=== PATIENT | female | born 1995 | race Caucasian/White ===

== ENCOUNTER 2016-10-20 16:57 | Emergency (ER) | payer MEDICAID ==
[~2016-10-20 16:57] MED LIST: PREN1PAK2 PO
--- NOTE | 2016-10-20 18:13 | PD ---
HPI Chief Complaint Sore Throat Date Seen: Oct 20, 2016 Travel History International Travel<30 Days: No Contact w/Intl Traveler<30Days: No Known Affected Area: No History of Present Illness HPI Mrs. Subramanian is 20 y/o a who presents at 31/0 weeks with 2-3 days of general malaise, sore throat and headaches. She reports that her Dad had similar symptoms and had the "flu". She had an episode of SOB and some mild cough that was non-productive. She denies pain or swelling in her extremities. She denies vaginal bleeding or LOF. She does report that the baby has been less active today. She has not been staying hydrated. Para: 3 : 1 History Past Medical History Medical History: Denies Significant Hx Obstetric History Obstetric History Previous vaginal delivery at term. Past Surgical History Surgical History: No Previous Surgery Family History Family History: Negative Social History Alcohol Use: No Tobacco Use: No Substance Abuse: No Allergies-Medications (Allergen,Severity, Reaction): Coded Allergies: Latex (Unverified Allergy, Severe, 10/13/16) Home Meds Reported Medications W/O Vit A W/ Fe Carbo Pack (Citranatal Dha Pack)27-1 & 250 Mg Pack1 Ea PO DAILY #6 BLISTER Ref 0 30 day supply. 08/20/16 Physical Exam Narrative GENERAL: Well-nourished, well-developed patient. SKIN: Warm and dry. HEAD: Normocephalic and atraumatic. EYES: No scleral icterus. No injection or drainage. ENT: Erythematous pharynx, no exudates. NECK: Supple, trachea midline. No JVD. CARDIOVASCULAR: Regular rate and rhythm without murmurs, gallops, or rubs. RESPIRATORY: Breath sounds equal bilaterally. No accessory muscle use. BREASTS: Bilateral exam showed no masses , no retractions, no nipple discharge. ABDOMEN/GI: Abdomen soft, non-tender, bowel sounds present, no rebound, no guarding Gravid to 31 weeks. GENITOURINARY: External Genitalia: intact and normal in appearance Membranes: intact Uterine Contractions: none on monitor FHT's: Category: 2 Baseline: 170-145 Reactive: yes Variability: mod Decels: none EXTREMITIES: No cyanosis or edema. BACK: Nontender without obvious deformity. No CVA tenderness. NEUROLOGICAL: Awake and alert. Motor and sensory grossly within normal limits. Data Data Vital Signs Reviewed: Yes Orders Influenzae A/B Antigen (10/20/16 18:09) MDM Plan Ms. Subramanian is a 20 y/o presenting at 31 weeks gestation with general malaise, headaches and a sore throat for 2-3 days. #1- IUP at 31 weeks strip reactive baseline 165-145, ++ acels. Not kimmie on toco Start 1 L bolus of LR Ampicillin 500 mg PO q 8 hours for possible bacterial pharyngitis Flu A & B were negative #2- Sore throat / Malaise Likely viral pharyngitis, will get rapid strep and mono screen. Flu Ab A&B were negative. Supportive measures - Tylenol Cold and Flu UA +/- culture #3- Headaches BP at goal 118 systolic - no protein on urine dip. tobi Barron. chloew Levy Corbin MD R2 Oct 20, 2016 18:13
[2016-10-20] MEDS ORDERED: LACTATED RINGER'S 1000 ML INJ 1,000 ML IV SCH (18:19)
--- NOTE | 2016-10-20 19:52 | PD ---
History of Present Illness History of Present Illness This patient is a 20-year-old white female at 31 weeks presents complaining of upper respiratory symptoms, ascribes headache and sore throat some sinus congestion and cough, denies obstetric problems no abdominal pain bleeding or rupture the membranes. Baby is active and heart rate tracing is reactive. She states that her had the flu recently our flu swab today done with nasal washings was negative for a and B flu, . Exam is benign lungs are clear patient probably has a virally URI also bacterial will see the patient ampicillin 500 3 times a day for a week, she is use Claritin over-the- counter for a sinus congestion to help with that, Tylenol use liberally is she' s been doing, and increase her fluid intake stay hydrated return if she starts getting fever or other symptoms with worsening Jose Francisco Barron II, MD Oct 20, 2016 19:52
[2016-10-20] MEDS ORDERED: AMOXICILLIN (TRIHYDRATE) 500 MG CAP PO SCH (22:00)
--- NOTE | 2016-10-21 06:25 | PD ---
HPI Travel History International Travel<30 Days: No Contact w/Intl Traveler<30Days: No Known Affected Area: No Allergies-Medications (Allergen,Severity, Reaction): Coded Allergies: Latex (Unverified Allergy, Severe, 10/13/16) Home Meds Reported Medications W/O Vit A W/ Fe Carbo Pack (Citranatal Dha Pack)27-1 & 250 Mg Pack1 Ea PO DAILY #6 BLISTER Ref 0 30 day supply. 08/20/16 Physical Exam Narrative GENERAL: Well-nourished, well-developed patient. SKIN: Warm and dry. HEAD: Normocephalic and atraumatic. EYES: No scleral icterus. No injection or drainage. ENT: No nasal drainage noted. Mucous membranes pink. Airway patent. NECK: Supple, trachea midline. No JVD. CARDIOVASCULAR: Regular rate and rhythm without murmurs, gallops, or rubs. RESPIRATORY: Breath sounds equal bilaterally. No accessory muscle use. BREASTS: Bilateral exam showed no masses , no retractions, no nipple discharge. ABDOMEN/GI: Abdomen soft, non-tender, bowel sounds present, no rebound, no guarding Gravid to [-] weeks size Fundal Height: [-] GENITOURINARY: External Genitalia: intact and normal in appearance BUS glands: [-] Cervix: [-] Dilatation: [-] Effacement: [-] Station: [-] Presentation: [-] Membranes: [intact or ruptured] Uterine Contractions: [-] FHT's: Category: [-] Baseline: [-] Reactive: [-] Variability: [-] Decels: [-] EXTREMITIES: No cyanosis or edema. BACK: Nontender without obvious deformity. No CVA tenderness. NEUROLOGICAL: Awake and alert. Motor and sensory grossly within normal limits. Five out of 5 muscle strength in all muscle groups. Normal speech. Data Data Orders Influenzae A/B Antigen (10/20/16 18:09) Vital Signs (Adult) .ON ADMISSION (10/20/16 18:19) ^ Labor Status (10/20/16 18:19) Lactated Ringer's 1000 Ml Inj (Lr 1000 M (10/20/16 18:19) Group A Rapid Strep Screen (10/20/16 18:19) Amoxicillin (Trimox) (10/20/16 22:00) Labs Date/Time Procedure Status Source Growth 10/20/16 17:15 Influenza Types A,B Antigen ([place]) - Final Complete Nasal Washing NEGATIVE FOR FLU A AND B ANTIGEN.... MDM Diagnosis Diagnosis: Primary Impression: Upper respiratory tract infection Additional Impression: Abdominal cramping affecting Disposition: 01 DISCHARGE HOME Condition: Stable Patient Instructions: General Instructions Additional Instructions: drink plenty of fluid, may take claritin, robitussin, tylenol for symptonms, saline nasal spray for nasal congestion. prescription for ampicillin, 500 mg 1 three times daily Departure Forms: Tests/Procedures Jose Francisco Barron II, MD Oct 21, 2016 06:24
== END 2016-10-20 20:30 | disposition home or self-care (01) ==
LOC: HOBED 16:57
DX: O26.893 Other specified pregnancy related conditions, third trimester (principal); J06.9 Acute upper respiratory infection, unspecified; R10.9 Unspecified abdominal pain; R05 Cough; J02.9 Acute pharyngitis, unspecified; R51 Headache
CPT/HCPCS: 87804; 99284

== ENCOUNTER 2016-12-11 07:45 | Inpatient (IN) | payer MEDICAID ==
[2016-12-11] VITALS (126 sets, daily range): BP systolic 81–126; BP diastolic 46–99; PULSE 61–254; RESP 3–18; TEMP 97.9–99.1
[2016-12-11] MEDS ORDERED: LACTATED RINGER'S 1000 ML INJ 1,000 ML IV PRN (08:28)
--- NOTE | 2016-12-11 08:29 | PD ---
HPI Chief Complaint ctx since 2am Date Seen: Dec 11, 2016 Time Seen: 08:55 Travel History International Travel<30 Days: No Contact w/Intl Traveler<30Days: No Known Affected Area: No History of Present Illness HPI Patient is a 21 year old at 38 and 3/7 weeks gestation by by early second trimester ultrasound is not consistent with LMP. EDC 12/22/16. She presents to the ED with contractions since 2 AM. [facility] cares with [facility]. She denies leakage of fluid, vaginal bleeding. She feels baby moving regularly. She denies ROSA/N/V/D/fever/sick contacts/SOB/calf pain/dizziness/seeing spots. GBS collected 11/24/16 was negative Para: 1 : 2 History Past Medical History Medical History: Denies Significant Hx Past Surgical History Surgical History: No Previous Surgery Family History Narrative Family History Mother with renal cell carcinoma age 61 Social History Alcohol Use: No Tobacco Use: No (quit smoking prior to ) Substance Abuse: No Allergies-Medications (Allergen,Severity, Reaction): Coded Allergies: Latex (Unverified Allergy, Severe, 12/11/16) Home Meds Reported Medications W/O Vit A W/ Fe Carbo Pack (Citranatal Dha Pack)27-1 & 250 Mg Pack1 Ea PO DAILY #6 BLISTER Ref 0 30 day supply. 08/20/16 Review of Systems Except as stated in HPI: all other systems reviewed are Neg Physical Exam Narrative GENERAL: Well-nourished, well-developed female patient who looks uncomfortable during contractions SKIN: Warm and dry. No rashes. HEAD: Normocephalic and atraumatic. EYES: No scleral icterus. No injection or drainage. ENT: No nasal drainage noted. Mucous membranes pink. Airway patent. NECK: Supple, trachea midline. No JVD. CARDIOVASCULAR: Regular rate and rhythm without murmurs, gallops, or rubs. RESPIRATORY: Breath sounds equal bilaterally. No accessory muscle use. ABDOMEN/GI: Abdomen gravid, non-tender, bowel sounds present, no rebound, no guarding GENITOURINARY: External Genitalia: intact and normal in appearance Cervix: 5/50/-3, posterior, ballotable vertex presentation (head is floating above amniotic fluid) Membranes: Intact, ballotable head Uterine Contractions: Every 4-6 minutes FHT's: Category: 1 Baseline: 130 Reactive: Yes to 150 Variability: Moderate Decels: none EXTREMITIES: No cyanosis. 1+ lower extremity edema bilaterally BACK: Nontender without obvious deformity. No CVA tenderness. NEUROLOGICAL: Awake and alert. Motor and sensory grossly within normal limits. Five out of 5 muscle strength in all muscle groups. Normal speech. Data Data Vital Signs Reviewed: Yes (BP 107/77, heart rate 86, respirations 18, no temp documented) Orders Vital Signs (Adult) .ON ADMISSION (12/11/16 08:17) ^ Labor Status (12/11/16 08:17) Urinalysis - C+S If Indicated (12/11/16 08:17) ^ Non Stress Test (12/11/16 08:17) ^ Hydration (12/11/16 08:17) [facility] Medical Record Reviewed: Yes Plan 21-year-old at 38 and 3/7 wk today presents in labor. [facility] patient. Intrauterine : Category 1 tracing Vaginal delivery expected Membranes are intact, ballotable vertex presentation Epidural for pain CBC pending U/A pending IV fluids Monitor heart tones Routine care GBS negative SDW Dr. Barron, Dr. Kaur Diagnosis Diagnosis: Primary Impression: 38 weeks gestation of Candice Kerns MD R1 Dec 11, 2016 08:28
[2016-12-11] MEDS ORDERED: ONDANSETRON HCL 4 MG/2 ML VIAL IV PRN (08:30)
[2016-12-11] MEDS ORDERED: CITRIC ACID-SODIUM CITRATE LIQ 30 ML UDC PO SCH (08:30)
[2016-12-11] MEDS ORDERED: SODIUM CHLORID 0.9% 500 ML INJ 500 ML IV PRN (08:30)
[2016-12-11] MEDS ORDERED: LIDOCAINE HCL 1% 50 ML VIAL INFIL PRN (08:30)
[2016-12-11] MEDS ORDERED: OXYTOCIN 30 UNITS-500ML PREMIX 500 ML IV ONE (08:30)
[2016-12-11] MEDS ORDERED: MINERAL OIL 10 ML VIAL TOPICAL PRN (08:30)
[2016-12-11] MEDS ORDERED: LIDOCAINE HCL 1% 50 ML VIAL I-DERMAL PRN (08:30)
[2016-12-11] MEDS ORDERED: SODIUM CHLOR 0.9% 1000 ML INJ 1,000 ML IV PRN (08:48)
--- NOTE | 2016-12-11 08:59 | HHI.HP ---
HPI Chief Complaint Contraction pain Date Seen: Dec 11, 2016 Travel History International Travel<30 Days: No Contact w/Intl Traveler<30Days: No Known Affected Area: No History of Present Illness HPI This patient is a 21-year-old white female A1 at 38 weeks [facility] by [facility] who presents complaining of contractions denies bleeding or ruptured membranes. Her heart rate tracing is reactive and she is kimmie regularly. Para: 1 : 3 History Obstetric History Obstetric History One vaginal delivery 1 early loss Social History Alcohol Use: No Tobacco Use: No Substance Abuse: No Allergies-Medications (Allergen,Severity, Reaction): Coded Allergies: Latex (Unverified Allergy, Severe, 12/11/16) Home Meds Reported Medications W/O Vit A W/ Fe Carbo Pack (Citranatal Dha Pack)27-1 & 250 Mg Pack1 Ea PO DAILY #6 BLISTER Ref 0 30 day supply. 08/20/16 Review of Systems General / Constitutional: No: Fever, Weight Gain, Chills, Other Eyes: No: Diploplia, Blurred Vision, Visual changes, Pain, Photophobia HENT: No: Headaches, Vertigo, Lightheadedness Cardiovascular: No: Irregular Rhythm, Chest Pain or Discomfort, Palpitations, Tachycardia, Syncope, Varicosities, Edema, Cyanosis Respiratory: No: Cough, Short of Breath, Other Gastrointestinal: Abdominal Pain, No: Nausea, Vomiting, Diarrhea Genitourinary: No: Decreased Urinary Output, Oliguria Musculoskeletal: No: Limited ROM, Weakness, Cramping, Edema, Pain Skin: No Rash, No Itching, No Dryness, No Lumps, No Change in Pigmentation, No Change in Nails, No Alopecia, No Lesions Neurologic: No: Weakness, Dizziness, Syncope, Focal Abnormalities, Coordination Problem, Headache, Slurred Speech, Seizures Psychiatric: No: Depression, Suicidal Ideations, Homicidal Ideation Endocrine: No: Heat Intolerance, Cold Intolerance, Polydipsia, Polyuria, Other Physical Exam Narrative GENERAL: Well-nourished, well-developed patient. SKIN: Warm and dry. HEAD: Normocephalic and atraumatic. EYES: No scleral icterus. No injection or drainage. ENT: No nasal drainage noted. Mucous membranes pink. Airway patent. NECK: Supple, trachea midline. No JVD. CARDIOVASCULAR: Regular rate and rhythm without murmurs, gallops, or rubs. RESPIRATORY: Breath sounds equal bilaterally. No accessory muscle use. BREASTS: Bilateral exam showed no masses , no retractions, no nipple discharge. ABDOMEN/GI: Abdomen soft, non-tender, bowel sounds present, no rebound, no guarding Gravid to [-38] weeks size Fundal Height: [-38] GENITOURINARY: External Genitalia: intact and normal in appearance BUS glands: [-] Cervix: [-] Dilatation: [-5] Effacement: [50-] Station: [-3] unengaged presenting part Presentation: [Cephalic-] ballotable Membranes: [intact ] Uterine Contractions: [reg-] FHT's: Category: [-1] Baseline: [-133] Reactive: [yes-] Variability: [mod-] Decels: [-none] EXTREMITIES: No cyanosis or edema. BACK: Nontender without obvious deformity. No CVA tenderness. NEUROLOGICAL: Awake and alert. Motor and sensory grossly within normal limits. Five out of 5 muscle strength in all muscle groups. Normal speech. Data Data Orders Vital Signs (Adult) .ON ADMISSION (12/11/16:) ^ Labor Status (12/11/16:) Urinalysis - C+S If Indicated (12/11/16:) ^ Non Stress Test (12/11/16:) ^ Hydration (12/11/16:) Admit To Inpatient (12/11/16 ) Code Status (12/11/16 08:28) Vital Signs (Adult) .Per protocol (12/11/16 08:28) Activity Oob Ad Anais (12/11/16 08:28) ^ Heart (12/11/16 08:28) ^ Amnioinfusion (12/11/16 08:28) Urinary Catheter Management .ONCE (12/11/16 08:28) Diet Npo (12/11/16 Breakfast) Lactated Ringer's 1000 Ml Inj (Lr 1000 M (12/11/16 08:28) Lactated Ringer's 1000 Ml Inj (Lr 1000 M (12/11/16 08:28) Sodium Chlorid 0.9% 500 Ml Inj (Ns 500 M (12/11/16 08:30) Sodium Chlor 0.9% 1000 Ml Inj (Ns 1000 M (12/11/16 08:48) Lidocaine 1% Inj (50 Ml) (Xylocaine 1% I (12/11/16 08:30) Citric Acid-Sodium Citrate Liq (Bicitra (12/11/16 08:30) Ondansetron Inj (Zofran Inj) (12/11/16 08:30) Fentanyl Inj (Fentanyl Inj) (12/11/16 08:30) Fentanyl Inj (Fentanyl Inj) (12/11/16 08:30) Complete Blood Count With Diff (12/11/16 08:28) Hold Clot (12/11/16 08:28) Abo/Rh Blood Type (12/11/16 08:28) Resp Oxygen Non Rebreathe Mask (12/11/16 ) ^ Epidural / Intrathecal Infus (12/11/16 08:28) Oxytocin 30 Units-500ml Premix (Pitocin (12/11/16 08:30) Lidocaine 1% Inj (50 Ml) (Xylocaine 1% I (12/11/16 08:30) Light Mineral Oil (Muri-Lube Oil) (12/11/16 08:30) Inpatient Certification (12/11/16 ) Ob (2e) Additional Admit Info (12/11/16 08:44) Assessment/Plan Assessment and Plan This patient is a 21-year-old white female at 38 weeks presents in labor. Her cervix is 5 cm 50% -3 with an unengaged presenting cephalic there is no bleeding or rupture the membranes and I back there is an intact bag of water and the head is floating in the upper pelvis Plan to admit the patient and would wait until the head is presenting more pressure on the cervix before ruptured her membranes. And if she ruptures her membranes spontaneously she does be examined to make sure is no cord prolapse Jose Francisco Barron II, MD Dec 11, 2016 08:59
[2016-12-11 09:14] LABS: AUTOMATED NEUTROPHIL # 7.3 TH/MM3 (1.8-7.7); BASOPHIL % 0.3 % (0.0-2.0); EOSINOPHIL % 0.2 % (0.0-4.0); HEMATOCRIT 39.1 % (35.0-46.0); HEMO FLAGS DIFF FINAL; LYMPH % 23.6 % (9.0-44.0); LYMPHOCYTE # 2.5 TH/MM3 (1.0-4.8); MEAN CELL VOLUME 86.5 FL (80.0-100.0); MEAN CORPUSCULAR HEMOGLOBIN 29.5 PG (27.0-34.0); MEAN CORPUSCULAR HGB CONC 34.1 % (32.0-36.0); NEUT % 68.9 % (16.0-70.0); PLATELET COUNT 226 TH/MM3 (150-450); RED BLOOD COUNT 4.52 MIL/MM3 (4.00-5.30); RED CELL DISTRIBUTION WIDTH 13.4 % (11.6-17.2); WHITE BLOOD COUNT 10.6 TH/MM3 (4.0-11.0)
[2016-12-11 09:15] LABS: BACTERIA, URINE RARE /hpf; BLOOD, URINE NEG (NEG); COMMENT (UR) CULT NOT INDICATED; CULTURE IF INDICATED CULT NOT INDICATED; GLUCOSE,URINE NEG (NEG); KETONE, URINE NEG (NEG); NITRITE,URINE NEG (NEG); PH, URINE 6.5 (5.0-8.5); SQUAMOUS EPITHELIAL CELL URINE 1 /hpf (0-5); URINE COLOR YELLOW (YELLW/STRAW)
[2016-12-11] MEDS ORDERED: fentaNYL 2MCG-BUPIV 0.125% INJ 100 ML ONE (09:36)
[2016-12-11] MEDS ORDERED: ePHEDrine/NS 25 MG/5 ML SYR ONE (09:41)
[2016-12-11] MEDS ORDERED: LIDOCAINE HCL 1% PF 5 ML AMPULE ONE (10:05)
--- NOTE | 2016-12-11 11:29 | PD.LABORPN ---
Subjective Subjective Epidural in place now, prolonged placement (took 1 hr) noted with possible late decels during that time. Patient strip now showing sporadic CTX, small accels with moderate variablility, no decls. Cat 1. AFVSS. (Candice Kerns MD R1) Objective Vital Signs Vital Signs Date Time Temp Pulse Resp B/P Pulse Ox O2 Delivery O2 Flow Rate FiO2 12/11/16 11:05 61 12/11/16 11:04 62 93/57 12/11/16 11:00 82 12/11/16 10:59 79 100/62 12/11/16 10:55 86 12/11/16 10:50 73 12/11/16 10:48 89 98/48 12/11/16 10:45 16 12/11/16 10:45 111 12/11/16 10:40 91 12/11/16 10:37 74 122/70 12/11/16 10:35 86 12/11/16 10:30 91 12/11/16 10:20 76 12/11/16 10:15 80 12/11/16 10:10 80 12/11/16 10:05 70 12/11/16 10:00 77 12/11/16 09:55 72 12/11/16 09:50 69 12/11/16 09:45 16 12/11/16 09:33 78 123/71 12/11/16 09:30 18 12/11/16 09:18 69 119/80 12/11/16 08:15 98.3 Objective Pelvic Exam: Cervix: [-] Dilatation: [-7 Effacement: [50-] Station: [-2] unengaged presenting part Presentation: [Cephalic-] ballotable Membranes: [intact ] Uterine Contractions: [reg-] FHT's: Category: [-1] Baseline: [-140] Reactive: yes to 155 Variability: [mod-] Decels: possible late x 2 around epidural placement, none x 20 min (Candice Kerns MD R1) Assessment/Plan Assessment and Plan 21-year-old at 38 and 3/7 wk today in active phase of labor. [facility] patient. CTX less notable after epidural. Cervix 7/60/-2 so some progress over 3-4 hr Intrauterine : Category 1 tracing Vaginal delivery expected Membranes are intact, ballotable vertex presentation, no AROM at this time, prompt vaginal exam indicated to assess for cord prolapse once ruptured. No IUPC yet given intact. Epidural in place approx 11am Will start Pitocin if no cervical change in 1-2hr CBC unremarkable H/H 13.3/39.1, plt 226 UA showing 6 wbcs, no cx indicated, pt asymptomatic IV fluids per protocol Monitor heart tones Routine care GBS negative (Candice Kerns MD R1) Attestation Agree with above (Katherine Sanchez MD) Candice Kerns MD R1 Dec 11, 2016 11:29 Katherine Sanchez MD Dec 11, 2016 16:38
[2016-12-11] MEDS ORDERED: OXYTOCIN 30 UNITS-500ML PREMIX 500 ML IV SCH (13:15)
[2016-12-11] MEDS ORDERED: NO SYSTEM NARCOTICS XX PRN (13:45)
[2016-12-11] MEDS ORDERED: fentaNYL 2MCG-BUPIV 0.125% 100 ML EPIDURAL SCH (13:45)
[2016-12-11] MEDS ORDERED: ePHEDrine/NS 25 MG/5 ML SYR IV PRN (13:45)
[2016-12-11] MEDS ORDERED: DO NOT ADMINISTER ANTICOAGULANTS XX PRN (13:45)
--- NOTE | 2016-12-11 14:57 | PD.LABORPN ---
Subjective Subjective Epidural in place, patient comfortable in bed. AROM at 2:50 PM. Head engaged with cervix. Oxytocin at 8 milliunits /min. Minimal contractions. Objective Vital Signs Vital Signs Date Time Temp Pulse Resp B/P Pulse Ox O2 Delivery O2 Flow Rate FiO2 12/11/16 14:10 72 12/11/16 14:05 72 12/11/16 14:00 75 107/57 12/11/16 14:00 78 12/11/16 13:48 98.1 12/11/16 13:40 74 12/11/16 13:35 83 12/11/16 13:30 88 103/79 12/11/16 13:30 78 12/11/16 13:10 76 12/11/16 13:05 72 12/11/16 13:00 75 102/54 12/11/16 13:00 67 12/11/16 12:55 72 12/11/16 12:50 71 12/11/16 12:46 63 109/57 12/11/16 12:45 71 12/11/16 12:15 16 12/11/16 12:10 66 12/11/16 12:05 71 12/11/16 12:00 62 12/11/16 12:00 62 109/65 12/11/16 11:55 65 12/11/16 11:50 71 12/11/16 11:45 63 112/49 12/11/16 11:45 16 12/11/16 11:45 86 12/11/16 11:40 68 12/11/16 11:35 71 12/11/16 11:31 66 110/58 12/11/16 11:30 74 12/11/16 11:25 75 12/11/16 11:20 78 12/11/16 11:15 16 12/11/16 11:15 67 12/11/16 11:15 70 118/99 12/11/16 11:13 83 111/94 12/11/16 11:10 63 12/11/16 11:05 61 12/11/16 11:04 62 93/57 12/11/16 11:00 82 12/11/16 10:59 79 100/62 12/11/16 10:55 86 12/11/16 10:50 73 12/11/16 10:48 89 98/48 12/11/16 10:45 16 12/11/16 10:45 111 12/11/16 10:40 91 12/11/16 10:37 74 122/70 12/11/16 10:35 86 12/11/16 10:30 91 12/11/16 10:20 76 12/11/16 10:15 80 12/11/16 10:10 80 12/11/16 10:05 70 12/11/16 10:00 77 12/11/16 09:55 72 12/11/16 09:50 69 12/11/16 09:45 16 12/11/16 09:33 78 123/71 12/11/16 09:30 18 12/11/16 09:18 69 119/80 12/11/16 08:15 98.3 Objective Pelvic Exam: Dilatation: 6 Effacement: 100 Station: -1 Presentation:vertex Membranes: AROM Uterine Contractions: rare FHT's: Category: 1 Baseline: 140's Reactive: yes Variability: moderate Decels: none Assessment/Plan Assessment and Plan 21-year-old at 38 and 3/7 wk today in active phase of labor. [facility] patient. CTX sporadic currently. Cervix 6/100/-1. AROM performed at 2:50 PM. Intrauterine : Category 1 tracing Vaginal delivery expected AROM performed at 2:[address] approx 11am Pitocin at 8 milliunits/min CBC unremarkable H/H 13.3/39.1, plt 226 UA showing 6 wbcs, no cx indicated, pt asymptomatic IV fluids per protocol Monitor heart tones Routine care Seen and discussed with Dr. Sanchez and Polo Stevens MD R2 Dec 11, 2016 14:57
[2016-12-11] MEDS ORDERED: MEASLES, MUMPS, RUBELLA VACCINE 0.5 ML VIAL SQ ONE (16:00)
[2016-12-11] MEDS ORDERED: DIPHTH/TETANUS/ACEL PERTUSSIS (BOOSTER) 0.5 ML VIAL/PFS IM ONE (16:00)
--- NOTE | 2016-12-11 16:26 | PD.LABORPN ---
Subjective Subjective Patient states she is more uncomfortable with contractions, bolus dose of meds in epidural did not help. States legs are numb, left > right. She states fluid has continued to leak slowly since AROM at 1449 today. Objective Vital Signs Vital Signs Date Time Temp Pulse Resp B/P Pulse Ox O2 Delivery O2 Flow Rate FiO2 12/11/16 16:00 81 12/11/16 16:00 74 101/55 12/11/16 15:59 98.3 12/11/16 15:30 76 96/65 12/11/16 15:30 73 12/11/16 15:05 78 12/11/16 15:01 76 97/55 12/11/16 15:00 76 12/11/16 14:40 74 12/11/16 14:35 75 12/11/16 14:31 75 111/61 12/11/16 14:30 77 12/11/16 14:10 72 12/11/16 14:05 72 12/11/16 14:00 75 107/57 12/11/16 14:00 78 12/11/16 13:48 98.1 12/11/16 13:40 74 12/11/16 13:35 83 12/11/16 13:30 88 103/79 12/11/16 13:30 78 12/11/16 13:10 76 12/11/16 13:05 72 12/11/16 13:00 75 102/54 12/11/16 13:00 67 12/11/16 12:55 72 12/11/16 12:50 71 12/11/16 12:46 63 109/57 12/11/16 12:45 71 12/11/16 12:15 16 12/11/16 12:10 66 12/11/16 12:05 71 12/11/16 12:00 62 12/11/16 12:00 62 109/65 12/11/16 11:55 65 12/11/16 11:50 71 12/11/16 11:45 63 112/49 12/11/16 11:45 16 12/11/16 11:45 86 12/11/16 11:40 68 12/11/16 11:35 71 12/11/16 11:31 66 110/58 12/11/16 11:30 74 12/11/16 11:25 75 12/11/16 11:20 78 12/11/16 11:15 16 12/11/16 11:15 67 12/11/16 11:15 70 118/99 12/11/16 11:13 83 111/94 12/11/16 11:10 63 12/11/16 11:05 61 12/11/16 11:04 62 93/57 12/11/16 11:00 82 12/11/16 10:59 79 100/62 12/11/16 10:55 86 12/11/16 10:50 73 12/11/16 10:48 89 98/48 12/11/16 10:45 16 12/11/16 10:45 111 12/11/16 10:40 91 12/11/16 10:37 74 122/70 12/11/16 10:35 86 12/11/16 10:30 91 12/11/16 10:20 76 12/11/16 10:15 80 12/11/16 10:10 80 12/11/16 10:05 70 12/11/16 10:00 77 12/11/16 09:55 72 12/11/16 09:50 69 12/11/16 09:45 16 12/11/16 09:33 78 123/71 12/11/16 09:30 18 12/11/16 09:18 69 119/80 Objective Pelvic Exam: Cervix: Dilatation:8 Effacement: 90 Station: 0 Presentation: cephalic Membranes: AROM today @ 1449 Uterine Contractions: every 2 - 4 min on Pit 10, discontinued due to late FHT's: Category: 2 Baseline: 140 Reactive: yes to 155 Variability: mod Decels: late decels > 50% CTX Assessment/Plan Assessment and Plan 21-year-old at 38 and 3/7 wk today in active phase of labor. [facility] patient. CTX every 2-4 min on Pit with late decels. Stopped Pit, pt repositioned, monitor FHTs with scalp electrode, ctx with IUPC. Will initiate amnioinfusion if no resolution of decels Intrauterine : Category 2 tracing, interventions in play now Vaginal delivery expected Replacing epidural now given increased pain Initial epidural in place approx 11am Pitocin was at 10, now stopped, will assess CTX without, titrate up once tolerated CBC unremarkable H/H 13.3/39.1, plt 226 UA showing 6 wbcs, no cx indicated, pt asymptomatic IV fluids per protocol Monitor heart tones Routine care Candice Kerns MD R1 Dec 11, 2016 16:25 Candice Kerns MD R1 Dec 11, 2016 16:25
--- NOTE | 2016-12-11 20:57 | PD.OB.DELI ---
Delivery Date: Dec 11, 2016 Anesthesia: Epidural Episiotomy: None Vaginal Delivery: Normal Presentation: Occiput anterior Nuchal Cord: x1 Delayed cord clamping (45 sec): Yes : Male One Minute : 8 Five Minute : 9 Weight: 3180g Care: Suctioned, Spontaneous crying, Responded to stimulation Placenta: Spontaneous delivery, Intact, 3 vessel cord Laceration: No lacerations Additional Information Baby boy delivered via spontaneous vaginal delivery, placenta delivered spontaneously. No lacerations. Apgars 8,9 (Ross Rios MD R1) Attestation Agree with delivery note. Resident was supervised closely during delivery. Nuchal cord x 1 reduced, no perineal lacerations (Katherine Sanchez MD) Ross Rios MD R1 Dec 11, 2016 20:56 Katherine Sanchez MD Dec 11, 2016 22:39
[2016-12-11] MEDS ORDERED: ALUMINUM/MAGNESIUM/SIMETH 30 ML CUP PO PRN (21:00)
[2016-12-11] MEDS ORDERED: WITCH HAZEL 50%/GLYCERIN 12.5% 40 PAD JAR TOPICAL PRN (21:00)
[2016-12-11] MEDS ORDERED: SODIUM CHLORIDE 0.9% FLUSH 5 ML FLUSH IV PRN (21:00)
[2016-12-11] MEDS ORDERED: ONDANSETRON ODT 4 MG TAB PO PRN (21:00)
[2016-12-11] MEDS ORDERED: BENZOCAINE 20% TOPICAL SPRAY 60 ML CAN TOPICAL PRN (21:00)
[2016-12-11] MEDS ORDERED: ZOLPIDEM TARTRATE 5 MG TAB PO PRN (21:00)
[2016-12-12] MEDS: LACTATED RINGER'S 1000 ML INJ 1,000 ML IV SCH (00:28)
[2016-12-12] MEDS: DOCUSATE SODIUM 50 MG/SENNA 8.6 MG TAB PO PRN ×2 (07:04→20:38)
[2016-12-12] MEDS: IBUPROFEN 600 MG TAB PO PRN ×3 (07:05→20:38)
--- NOTE | 2016-12-12 07:44 | HHI.OB ---
Subjective Post Day: 1 Remarks day #1. AFVSS overnight. Pain well-controlled. Decreased lochia. Denies dysuria. No breast tenderness. She is feeding the baby via breast. Appetite good. No nausea or vomiting. Endorses flatus. No bowel movement. Ambulating well. Denies calf pain, shortness of breath, or cough. Otherwise, she is doing well this morning and has no other complaints. (Ross Rios MD R1) Objective Vitals/I&O Vital Signs Date Time Temp Pulse Resp B/P Pulse Ox O2 Delivery O2 Flow Rate FiO2 12/11/16 22:30 109 112/52 12/11/16 22:18 18 12/11/16 22:15 99.1 110 117/67 12/11/16 22:15 18 12/11/16 22:00 18 12/11/16 22:00 113 118/65 12/11/16 21:45 110 118/54 12/11/16 21:43 18 12/11/16 21:30 110 119/58 12/11/16 21:20 18 12/11/16 21:20 3 12/11/16 21:15 118 118/49 12/11/16 21:01 98.3 18 12/11/16 21:00 116 111/55 12/11/16 20:56 117 114/47 12/11/16 20:05 94 12/11/16 20:01 106/65 12/11/16 19:35 111 12/11/16 19:30 97 18 12/11/16 19:30 97.9 12/11/16 19:30 106/81 12/11/16 19:25 110 12/11/16 19:00 87 116/76 12/11/16 19:00 89 12/11/16 18:55 105 12/11/16 18:50 116 12/11/16 18:45 99 12/11/16 18:40 92 12/11/16 18:35 114 12/11/16 18:35 119 102/66 12/11/16 18:31 110 81/46 12/11/16 18:30 102 12/11/16 18:25 113 12/11/16 18:24 216 107/51 12/11/16 18:20 104 12/11/16 18:15 114 12/11/16 18:10 100 12/11/16 18:05 107 12/11/16 18:02 165 108/62 12/11/16 18:00 99 12/11/16 17:55 101 12/11/16 17:55 98 112/90 12/11/16 17:51 125 98/64 12/11/16 17:51 98.1 18 12/11/16 17:50 101 12/11/16 17:45 83 118/53 12/11/16 17:45 93 12/11/16 17:40 84 111/48 12/11/16 17:40 88 12/11/16 17:35 87 12/11/16 17:35 100 108/53 12/11/16 17:31 83 105/56 12/11/16 17:30 105 12/11/16 17:26 115 96/58 12/11/16 17:25 113 12/11/16 17:21 254 100/81 12/11/16 17:20 108 12/11/16 17:16 121 122/58 12/11/16 17:15 100 12/11/16 17:10 92 125/95 12/11/16 17:10 86 12/11/16 17:07 18 12/11/16 17:05 86 120/69 12/11/16 17:05 77 12/11/16 17:00 123 12/11/16 17:00 86 103/81 12/11/16 16:57 76 126/70 12/11/16 16:55 105 111/53 12/11/16 16:55 119 12/11/16 16:53 75 108/71 12/11/16 16:50 105 12/11/16 16:50 97 84/46 12/11/16 16:45 95 12/11/16 16:40 87 12/11/16 16:35 86 12/11/16 16:30 100 12/11/16 16:30 97 101/80 12/11/16 16:15 89 12/11/16 16:10 86 12/11/16 16:05 78 12/11/16 16:00 81 12/11/16 16:00 74 101/55 12/11/16 15:59 98.3 12/11/16 15:30 76 96/65 12/11/16 15:30 73 3/10/17 15:05 78 12/11/16 15:01 76 97/55 12/11/16 15:00 76 12/11/16 14:40 74 12/11/16 14:35 75 12/11/16 14:31 75 111/61 12/11/16 14:30 77 12/11/16 14:10 72 12/11/16 14:05 72 12/11/16 14:00 75 107/57 12/11/16 14:00 78 12/11/16 13:48 98.1 12/11/16 13:40 74 12/11/16 13:35 83 12/11/16 13:30 88 103/79 12/11/16 13:30 78 12/11/16 13:10 76 12/11/16 13:05 72 12/11/16 13:00 75 102/54 12/11/16 13:00 67 12/11/16 12:55 72 12/11/16 12:50 71 12/11/16 12:46 63 109/57 12/11/16 12:45 71 12/11/16 12:15 16 12/11/16 12:10 66 12/11/16 12:05 71 12/11/16 12:00 62 12/11/16 12:00 62 109/65 12/11/16 11:55 65 12/11/16 11:50 71 12/11/16 11:45 63 112/49 12/11/16 11:45 16 12/11/16 11:45 86 12/11/16 11:40 68 12/11/16 11:35 71 12/11/16 11:31 66 110/58 12/11/16 11:30 74 12/11/16 11:25 75 12/11/16 11:20 78 12/11/16 11:15 16 12/11/16 11:15 67 12/11/16 11:15 70 118/99 12/11/16 11:13 83 111/94 12/11/16 11:10 63 12/11/16 11:05 61 12/11/16 11:04 62 93/57 12/11/16 11:00 82 12/11/16 10:59 79 100/62 12/11/16 10:55 86 12/11/16 10:50 73 3/10/17 10:48 89 98/48 12/11/16 10:45 16 12/11/16 10:45 111 12/11/16 10:40 91 12/11/16 10:37 74 122/70 12/11/16 10:35 86 12/11/16 10:30 91 12/11/16 10:20 76 12/11/16 10:15 80 12/11/16 10:10 80 12/11/16 10:05 70 12/11/16 10:00 77 12/11/16 09:55 72 12/11/16 09:50 69 12/11/16 09:45 16 12/11/16 09:33 78 123/71 12/11/16 09:30 18 12/11/16 09:18 69 119/80 12/11/16 08:15 98.3 Objective Remarks GENERAL: Well-nourished, well-developed patient. CARDIOVASCULAR: Regular rate and rhythm without murmurs, gallops, or rubs. RESPIRATORY: Breath sounds equal bilaterally. No accessory muscle use. ABDOMEN/GI: Abdomen soft, non-tender. Fundus: Firm, non-tender at umbilicus. GENITOURINARY: Light to moderate bleeding. EXTREMITIES: No cyanosis or edema, non-tender, without signs of DVT. Medications and IVs Current Medications Medications (Trade) Dose Ordered Sig/Daya Route Start Time Stop Time Status Last Admin Lactated Ringer's 1,000 ml @ 125 mls/hr Q8H IV 12/11/16 08:28 Lactated Ringer's 1,000 ml @ 3,000 mls/hr Q20M PRN IV 12/11/16 08:28 12/11/16 13:24 Sodium Chloride 500 ml @ 1,000 mls/hr ONCE PRN IV 12/11/16 08:30 12/12/16 08:29 (NS 1000 ml Inj) 1,000 ml @ 100 mls/hr Q10H PRN IV 12/11/16 08:48 12/11/16 17:01 (Zofran Inj) 4 mg Q6H PRN IV 12/11/16 08:30 (fentaNYL INJ) 50 mcg Q1H PRN IV PUSH 12/11/16 08:30 (fentaNYL INJ) 100 mcg Q1H PRN IV PUSH 12/11/16 08:30 Mineral Oil 10 ml 10 ml UNSCH PRN TOPICAL 12/11/16 08:30 (Pitocin 30 Units-NS 500 ml Premix) 500 ml @ 0 mls/hr TITRATE IV 12/11/16 13:15 12/11/16 13:25 Miscellaneous Information No systemic narcotics to be given except... UNSCH PRN XX 12/11/16 13:45 12/12/16 13:44 Miscellaneous Information DO NOT ADMINISTER ANY ANTICOAGUL... UNSCH PRN XX 12/11/16 13:45 12/12/16 13:44 (fentaNYL 2MCG-BUPIV 0.125% INJ) 100 ml @ 0 mls/hr TITRATE EPIDURAL 12/11/16 13:45 (ePHEDrine/NS 25 MG/5 ML SYR) 10 mg UNSCH PRN IV 12/11/16 13:45 12/12/16 13:44 (NS Flush) 2 ml BID IV 12/11/16 21:00 (NS Flush) 2 ml UNSCH PRN IV 12/11/16 21:00 (Tylenol) 650 mg Q4H PRN PO 12/11/16 21:00 (Motrin) 600 mg Q6H PRN PO 12/11/16 21:00 12/12/16 07:05 (Americaine 20% Top Spr) 1 spray Q4H PRN TOPICAL 12/11/16 21:00 (Tucks Pads) 1 applic QID PRN TOPICAL 12/11/16 21:00 (Xenia-Colace) 2 tab Q12H PRN PO 12/11/16 21:00 12/12/16 07:04 (Ambien) 5 mg HS PRN PO 12/11/16 21:00 (Mag-Al Plus Susp Liq) 15 ml Q8H PRN PO 12/11/16 21:00 (Ross Rios MD R1) Assessment/Plan Assessment and Plan 21y/o who is PPD#2 s/p . -Continue routine care. -Motrin PRN pain. -Encouraged OOB. Advised pelvic rest for 6 wks. -Will need a f/u appt. within 6 wks. -Re: ctrl, she is undecided -D/c in 1-2 more days. [facility] OB attending (Ross Rios MD R1) Attestation Agree with above management on PPD #1 (Katherine Sanchez MD) Ross Rios MD R1 Dec 12, 2016 07:44 Katherine Sanchez MD Dec 12, 2016 08:56
[2016-12-12 08:00] VITALS: BP 106/70; PULSE 78; RESP 20; TEMP 98
[2016-12-12] MEDS: ACETAMINOPHEN 325 MG TAB PO PRN ×3 (09:11→20:38)
[2016-12-12] MEDS: SODIUM CHLORIDE 0.9% FLUSH 5 ML FLUSH IV SCH (21:00)
[2016-12-13] MEDS: LACTATED RINGER'S 1000 ML INJ 1,000 ML IV SCH ×2 (00:28→08:28)
[2016-12-13] MEDS: ACETAMINOPHEN 325 MG TAB PO PRN ×2 (05:50→14:48)
[2016-12-13] MEDS: IBUPROFEN 600 MG TAB PO PRN ×2 (05:51→14:47)
[2016-12-13 08:00] VITALS: BP 113/78; PULSE 72; RESP 16; TEMP 97.9
[2016-12-13] MEDS: SODIUM CHLORIDE 0.9% FLUSH 5 ML FLUSH IV SCH (09:00)
--- NOTE | 2016-12-13 09:03 | HHI.OB ---
Subjective Post Day: 2 Remarks And now day 2 doing well afebrile vital signs stable She has no complaints or problems bleeding decreased tolerating her diet and has adequate bowel bladder function Uterus at the umbilicus and nontender Plan to discharge home today of and she is following up with [facility] Objective Vitals/I&O Vital Signs Date Time Temp Pulse Resp B/P Pulse Ox O2 Delivery O2 Flow Rate FiO2 12/13/16 08:00 97.9 72 16 113/78 Objective Remarks GENERAL: Well-nourished, well-developed patient. CARDIOVASCULAR: Regular rate and rhythm without murmurs, gallops, or rubs. RESPIRATORY: Breath sounds equal bilaterally. No accessory muscle use. ABDOMEN/GI: Abdomen soft, non-tender. Fundus: Firm, non-tender at umbilicus. GENITOURINARY: Light to moderate bleeding. EXTREMITIES: No cyanosis or edema, non-tender, without signs of DVT. Medications and IVs Current Medications Medications (Trade) Dose Ordered Sig/Daya Route Start Time Stop Time Status Last Admin Lactated Ringer's 1,000 ml @ 125 mls/hr Q8H IV 12/11/16 08:28 Lactated Ringer's 1,000 ml @ 3,000 mls/hr Q20M PRN IV 12/11/16 08:28 12/11/16 13:24 (NS 1000 ml Inj) 1,000 ml @ 100 mls/hr Q10H PRN IV 12/11/16 08:48 12/11/16 17:01 (Zofran Inj) 4 mg Q6H PRN IV 12/11/16 08:30 (fentaNYL INJ) 50 mcg Q1H PRN IV PUSH 12/11/16 08:30 (fentaNYL INJ) 100 mcg Q1H PRN IV PUSH 12/11/16 08:30 Mineral Oil 10 ml 10 ml UNSCH PRN TOPICAL 12/11/16 08:30 Oxytocin 500 ml @ 0 mls/hr TITRATE IV 12/11/16 13:15 12/11/16 13:25 (fentaNYL 2MCG-BUPIV 0.125% INJ) 100 ml @ 0 mls/hr TITRATE EPIDURAL 12/11/16 13:45 (NS Flush) 2 ml BID IV 12/11/16 21:00 (NS Flush) 2 ml UNSCH PRN IV 12/11/16 21:00 (Tylenol) 650 mg Q4H PRN PO 12/11/16 21:00 12/13/16 05:50 (Motrin) 600 mg Q6H PRN PO 12/11/16 21:00 12/13/16 05:51 (Americaine 20% Top Spr) 1 spray Q4H PRN TOPICAL 12/11/16 21:00 (Tucks Pads) 1 applic QID PRN TOPICAL 12/11/16 21:00 (Xenia-Colace) 2 tab Q12H PRN PO 12/11/16 21:00 12/12/16 20:38 (Ambien) 5 mg HS PRN PO 12/11/16 21:00 (Mag-Al Plus Susp Liq) 15 ml Q8H PRN PO 12/11/16 21:00 Assessment/Plan Assessment and Plan 21y/o who is PPD#2 s/p . -Continue routine care. -Motrin PRN pain. -Encouraged OOB. Advised pelvic rest for 6 wks. -Will need a f/u appt. within 6 wks. -Re: ctrl, she is undecided -D/c in 1-2 more days. [facility] OB attending Jose Francisco Barron II, MD Dec 13, 2016 09:03
--- NOTE | 2016-12-13 09:35 | HHI.OB ---
Subjective Post Day: 2 Remarks day #2. AFVSS overnight. Pain well-controlled. Decreased lochia. Denies dysuria. No breast tenderness. She is feeding the baby via breast. Appetite good. No nausea or vomiting. Endorses flatus. No bowel movement. Ambulating well. Denies calf pain, shortness of breath, or cough. Otherwise, she is doing well this morning and has no other complaints. Objective Vitals/I&O Vital Signs Date Time Temp Pulse Resp B/P Pulse Ox O2 Delivery O2 Flow Rate FiO2 12/13/16 08:00 97.9 72 16 113/78 Objective Remarks GENERAL: Well-nourished, well-developed patient. CARDIOVASCULAR: Regular rate and rhythm without murmurs, gallops, or rubs. RESPIRATORY: Breath sounds equal bilaterally. No accessory muscle use. ABDOMEN/GI: Abdomen soft, non-tender. Fundus: Firm, non-tender at umbilicus. GENITOURINARY: Light to moderate bleeding. EXTREMITIES: No cyanosis or edema, non-tender, without signs of DVT. Medications and IVs Current Medications Medications (Trade) Dose Ordered Sig/Daya Route Start Time Stop Time Status Last Admin Lactated Ringer's 1,000 ml @ 125 mls/hr Q8H IV 12/11/16 08:28 Lactated Ringer's 1,000 ml @ 3,000 mls/hr Q20M PRN IV 12/11/16 08:28 12/11/16 13:24 (NS 1000 ml Inj) 1,000 ml @ 100 mls/hr Q10H PRN IV 12/11/16 08:48 12/11/16 17:01 (Zofran Inj) 4 mg Q6H PRN IV 12/11/16 08:30 (fentaNYL INJ) 50 mcg Q1H PRN IV PUSH 12/11/16 08:30 (fentaNYL INJ) 100 mcg Q1H PRN IV PUSH 12/11/16 08:30 Mineral Oil 10 ml 10 ml UNSCH PRN TOPICAL 12/11/16 08:30 Oxytocin 500 ml @ 0 mls/hr TITRATE IV 12/11/16 13:15 12/11/16 13:25 (fentaNYL 2MCG-BUPIV 0.125% INJ) 100 ml @ 0 mls/hr TITRATE EPIDURAL 12/11/16 13:45 (NS Flush) 2 ml BID IV 12/11/16 21:00 (NS Flush) 2 ml UNSCH PRN IV 12/11/16 21:00 (Tylenol) 650 mg Q4H PRN PO 12/11/16 21:00 12/13/16 05:50 (Motrin) 600 mg Q6H PRN PO 12/11/16 21:00 12/13/16 05:51 (Americaine 20% Top Spr) 1 spray Q4H PRN TOPICAL 12/11/16 21:00 (Tucks Pads) 1 applic QID PRN TOPICAL 12/11/16 21:00 (Xenia-Colace) 2 tab Q12H PRN PO 12/11/16 21:00 12/12/16 20:38 (Ambien) 5 mg HS PRN PO 12/11/16 21:00 (Mag-Al Plus Susp Liq) 15 ml Q8H PRN PO 12/11/16 21:00 Assessment/Plan Assessment and Plan 21y/o , PPD#2 s/p . -Continue routine care. -Motrin PRN pain. -Encouraged OOB. Advised pelvic rest for 6 wks. -Will need a f/u appt. within 6 wks. -Re: ctrl, patient desires to have a tubal ligation -D/C later today. dw Marquez Nuno MD R2 Dec 13, 2016 09:35
[2016-12-13] MEDS ORDERED: SENN1TAB PO (09:38)
[2016-12-13] MEDS ORDERED: IBUP-232 PO (09:38)
--- NOTE | 2016-12-13 09:38 | HHI.DCPOC ---
Discharge Care Plan Diagnosis: (1) post (2) Status post vaginal delivery Report Symptoms to Your Doctor -Temperate above 100.5 degrees -Redness, of incision or excessive or foul smelling drainage -Unusual pain or calf pain -Increased vaginal bleeding -Painful or difficulty urinating -Feelings of extreme sadness or anxiety after 2 weeks Goals to Promote Your Health * To prevent worsening of your condition and complications * To maintain your health at the optimal level Directions to Meet Your Goals Take your medications as prescribed Follow your dietary instruction Follow activity as directed Ensure plenty of rest for recovery Drink fluids for hydration Keep your appointments as scheduled Take your immunizations and boosters as scheduled If your symptoms worsen call your PCP, if no PCP go to Urgent Care Center or Emergency Room Smoking is Dangerous to Your Health. Avoid second hand smoke Call the 24-hour crisis hotline for domestic abuse at Marquez Kerns MD R2 Dec 13, 2016 09:38
== END 2016-12-13 14:53 | disposition home or self-care (01) | DRG 775 ==
LOC: HOBED 07:45 → H2EA 08:45 → H1EA 12-12 01:40
PROVIDERS: ADMIT Obstetrics & Gynecology Maternal & Fetal Medicine; ATTEND Obstetrics & Gynecology Maternal & Fetal Medicine
PROC: 10E0XZZ Delivery of Products of Conception, External Approach (ICD-10-PCS; principal; 2016-12-11)
PROC: 00HU33Z Insertion of Infusion Device into Spinal Canal, Percutaneous Approach (ICD-10-PCS; 2016-12-11)
PROC: 3E0R3CZ (ICD-10-PCS; 2016-12-11)
PROC: 10907ZC Drainage of Amniotic Fluid, Therapeutic from Products of Conception, Via Natural or Artificial Opening (ICD-10-PCS; 2016-12-11)
DX: O69.81X0 Labor and delivery complicated by cord around neck, without compression, not applicable or unspecified (principal); Z3A.38 38 weeks gestation of pregnancy; Z37.0 Single live birth
CPT/HCPCS: 81001; 85025; 99285; J2590; J7030; J7120

== ENCOUNTER → 2017-06-09 | Day surgery (SDC) | payer MEDICAID, OTHER ==
--- NOTE | 2017-06-03 12:32 | MH ---
cc: YAJAIRA MCKEON CHRISTOPHER J. MD BELL,GENOVEVA KOCH,MATEO Luna MD DATE OF ADMISSION 06/09/2017 DATE OF 1995 REASON FOR ADMISSION Laparoscopic salpingectomy HISTORY OF PRESENT ILLNESS The patient is a 21-year-old white female 2 para 2 who wants to proceed with surgical sterilization. She has been counseled regarding the risks of failure in patient of young age as well as issues regarding regret of the decision and she has made an informed choice to proceed. PAST MEDICAL HISTORY Negative for heart, lung, liver disease, hypertension, diabetes, or stroke. Mild anxiety disorder otherwise negative. ALLERGIES LATEX, severe MEDICATIONS 1. Celexa 2. Hydroxyzine OBSTETRICAL HISTORY Two vaginal deliveries. GYNECOLOGIC HISTORY No STD's or abnormal Pap smears. PAST SURGICAL HISTORY None FAMILY HISTORY Noncontributory SOCIAL HISTORY , has good social support. No alcohol, tobacco, caffeine. REVIEW OF SYSTEMS Negative. No chest pain, orthopnea, PND. No nausea or fever, chills. No vaginal bleeding or discharge. PHYSICAL EXAM On exam, she is afebrile, vital signs stable. Blood pressure is 120/76, height is 5.1, weight is 171, BMI is 32. GENERAL: Patient is alert and oriented in no acute distress. No sign of cognitive dysfunction or depression. HEENT: Within normal limits. NECK: Supple. No JVD. CHEST: Clear. HEART: Regular rate and rhythm. ABDOMEN: Soft, nontender. No hepatosplenomegaly. No CVA tenderness. PELVIC: Exam will be detailed under anesthesia. EXTREMITIES: Warm, skin without rashes. NEUROLOGIC: Nonfocal, no DVT signs. ASSESSMENT Patient with multiparity, desires sterilization. The patient and I have discussed at length issues regarding alternative methods of contraception, reversible methods of contraception, male methods. She is aware of the risk of failure of surgical sterilization in a 21-year-old might be as high as 1 in 150 over her lifetime. The patient's accepts this risk and wants to proceed. Patient is aware of the risks, benefits, and alternatives to the planned procedure including damage to surrounding organs, bleeding, infection, dyspareunia and damage to bladder, bowel and urinary tract. She has made an informed choice to proceed. We will use antibiotic prophylaxis with Ancef 2 grams, DVT prophylaxis with sequential compression device, anticipate outpatient procedure. The patient has a history of severe allergy to latex and will use latex protocol. MD ENRIKE Stratton/KIARA /11:52 AM /12:22 PM
[~2017-06-09] VITALS: Ht 154.9 cm; Wt 75.4 kg
[~2017-06-09] MED LIST changes: +ACETAMINOPHEN 1000 MG/100 ML 100 ML IV ONE; +CHLORHEXIDINE GLUCONATE 2 % 1 PACK (2 CLOTHS) TOPICAL PRN; +CITA20TA4 PO; +DEXAMETHASONE SOD PHOS 4 MG/ML VIAL ONE; +DO NOT ADM ANY ANTICOAGULANT DRUGS PRN; +FAMOTIDINE 20 MG/2 ML VIAL ONE; +HYDR-3133 PO; +HYDROmorphone HCL PF 2 MG/ML VIAL ONE; +INSULIN HUMAN REGULAR 1,000 UNITS/10 ML VIAL SQ PRN; +KETOROLAC TROMETHAMINE 30 MG/ML (IVP) VIAL IV PUSH PRN; +KETOROLAC TROMETHAMINE 60 MG/2 ML (IM) VIAL IM ONE; +KETOROLAC TROMETHAMINE 60 MG/2 ML (IM) VIAL IM PRN; +LACTATED RINGER'S 1000 ML INJ 1,000 ML ONE; +LACTATED RINGER'S 1000 ML IV PRN; +LIDOCAINE 2%/EPINEPHrine PF 1:200,000 20ML SDV ONE; +LORazepam 2 MG/ML VIAL IV ONE; +LORazepam 2 MG/ML VIAL ONE; +METOPROLOL TARTRATE 25 MG TAB PO PRN; +MIDAZOLAM HCL 2 MG/2 ML VIAL ONE; +NEOSTIGMINE 3 MG/3 ML SYR IV ONE; +ONDANSETRON HCL 4 MG/2 ML VIAL IV PUSH ONE; +ONDANSETRON HCL 4 MG/2 ML VIAL IV PUSH PRN; +POVIDONE IODINE 5% (ANTISEPSIS KIT) 4 APPLICATIONS EACH NARE PRN; +PROPOFOL 200 MG/20 ML AMP IV ONE; +RESP: ALBUTEROL 2.5 MG/3 ML NEB (PRN) ONE; +SODIUM CHLORID 0.9% 500 ML IV PRN; +SUGAMMADEX SODIUM 200 MG/2 ML VIAL IV PUSH ONE; +ceFAZolin 2 GM PREMIX 50 ML IV SCH; +ceFAZolin 2 GM PREMIX 50 ML ONE; +traMADol HCL 50 MG TAB PO PRN
--- NOTE | 2017-06-09 12:23 | MP ---
cc: GENOVEVA GONSALEZ SUSAN B. ARNP-C STANLEY,MATEO OBRIEN MD, MD DATE OF SURGERY: 06/09/2017 PREOPERATIVE DIAGNOSES Multiparity, desires sterilization. POSTOPERATIVE DIAGNOSES Multiparity, desires sterilization with bilateral hydropic tubes and paratubal cysts. SURGEON Dr. Best. ANESTHESIA General endotracheal with OG tube. PROCEDURE Laparoscopic bilateral salpingectomy. PRODUCT SAFETY EXPERT [place] staff x1. FLUIDS 1000 ccs crystalloid. BLOOD LOSS Less than 5 ccs. URINE OUTPUT 200 ccs. FINDINGS External genitalia normal. POP-Q score: Aa is -1, Ap is -1. Point C is -6. Total vaginal length is 10. Genital hiatus is 6. Perineal body is 4. The uterus is anteverted and flexed, normal size, ovaries are normal, tubes were hydropic with small benign-appearing paratubal cysts. Upper abdomen normal. SPECIMENS Right and left tubes. COMPLICATIONS None. DISPOSITION To the recovery room stable. COUNTS Needle, sponge count correct. DRAINS [place] catheter. ANTIBIOTIC PROPHYLAXIS Ancef 2 grams. DVT PROPHYLAXIS Sequential compression device. TIMEOUT PROCEDURE Per protocol. SUMMARY OF INDICATION FOR PROCEDURE The patient with multiparity, desires sterilization. Despite the patient's young age, she was adamant about having tubal sterilization. She had been apprised of the risks, benefits and alternatives and made informed choice to proceed. PROCEDURE The patient was taken to the operating theatre, prepped and draped in fashion appropriate for the planned procedure. She was in dorsal lithotomy position with careful attention paid to placement of legs in stirrups to avoid undue stress to sensitive neurovascular structures. The above findings were noted. Neurovascular integrity was documented. [place] catheter was placed. Umbilicus was infiltrated with epinephrine lidocaine solution. A 5 mm scope was placed under direct visualization. The above findings were noted. Gas was insufflated and Trendelenburg position instituted. 5 mm trocar was placed in the left lower quadrant under direct visualization using a needle as a guide, a 8 mm trocar was placed suprapubically using a needle as a guide. There is no damage to underlying organs. The tubes were identified. There was somewhat tortuous and small paratubal cysts, appeared to be benign. These were all less than 1 cm. Tube on the left was removed by coming across the mesosalpinx with Harmonic energy, hemostasis was good. On the right side similar procedure was performed making sure the ureter was clear and came across the mesosalpinx, with Harmonic energy, removed the tube, hemostasis was good with and without gas pressure. Pelvis was inspected with and without gas pressure, all areas were hemostatic. We did use hemostatic powder for added reassurance, closed the incisions with 4-0 Monocryl and Dermabond. The procedure was concluded. The patient was taken to the recovery room in stable condition. Will be discharged per protocol. MD ENRIKE Stratton/RAJESH /11:19 AM /11:52 AM
[2017-06-09 13:36] VITALS: BP 117/69; TEMP 96.8; O2SAT 98
[2017-06-09 14:04] VITALS: RESP 18
== END | disposition home or self-care (01) ==
LOC: HSDC 08:43
PROVIDERS: ATTEND Obstetrics & Gynecology Gynecology
DX: Z30.2 Encounter for sterilization (principal); N83.8 Other noninflammatory disorders of ovary, fallopian tube and broad ligament
CPT/HCPCS: 00840; 58661; 84703; 85014; 88302; 94664; J0131; J0690; J1100; J1170; J1885; J2060; J2250; J2405; J2710; J3010; J7120; J7613; 88305

== ENCOUNTER 2017-09-02 22:12 | Emergency (ER) | payer MEDICAID, OTHER ==
[~2017-09-02 22:12] MED LIST changes: -ACETAMINOPHEN 1000 MG/100 ML 100 ML IV ONE; -CHLORHEXIDINE GLUCONATE 2 % 1 PACK (2 CLOTHS) TOPICAL PRN; -DEXAMETHASONE SOD PHOS 4 MG/ML VIAL ONE; -DO NOT ADM ANY ANTICOAGULANT DRUGS PRN; -FAMOTIDINE 20 MG/2 ML VIAL ONE; -HYDROmorphone HCL PF 2 MG/ML VIAL ONE; -INSULIN HUMAN REGULAR 1,000 UNITS/10 ML VIAL SQ PRN; -KETOROLAC TROMETHAMINE 30 MG/ML (IVP) VIAL IV PUSH PRN; -KETOROLAC TROMETHAMINE 60 MG/2 ML (IM) VIAL IM ONE; -KETOROLAC TROMETHAMINE 60 MG/2 ML (IM) VIAL IM PRN; -LACTATED RINGER'S 1000 ML INJ 1,000 ML ONE; -LACTATED RINGER'S 1000 ML IV PRN; -LIDOCAINE 2%/EPINEPHrine PF 1:200,000 20ML SDV ONE; -LORazepam 2 MG/ML VIAL IV ONE; -LORazepam 2 MG/ML VIAL ONE; -METOPROLOL TARTRATE 25 MG TAB PO PRN; -MIDAZOLAM HCL 2 MG/2 ML VIAL ONE; -NEOSTIGMINE 3 MG/3 ML SYR IV ONE; -ONDANSETRON HCL 4 MG/2 ML VIAL IV PUSH ONE; -ONDANSETRON HCL 4 MG/2 ML VIAL IV PUSH PRN; -POVIDONE IODINE 5% (ANTISEPSIS KIT) 4 APPLICATIONS EACH NARE PRN; -PROPOFOL 200 MG/20 ML AMP IV ONE; -RESP: ALBUTEROL 2.5 MG/3 ML NEB (PRN) ONE; -SODIUM CHLORID 0.9% 500 ML IV PRN; -SUGAMMADEX SODIUM 200 MG/2 ML VIAL IV PUSH ONE; -ceFAZolin 2 GM PREMIX 50 ML IV SCH; -ceFAZolin 2 GM PREMIX 50 ML ONE; -traMADol HCL 50 MG TAB PO PRN
[2017-09-02 22:14] VITALS: BP 103/63; PULSE 76; RESP 16; TEMP 98.3; O2SAT 100
[2017-09-03] MEDS ORDERED: LIDOCAINE VISCOUS 2% SOLN 15 ML UDC SWISH-SWAL ONE (00:45)
[2017-09-03] MEDS ORDERED: ALUMINUM/MAGNESIUM/SIMETH 30 ML CUP PO ONE (00:45)
[2017-09-03 01:00] VITALS: BP 101/56; PULSE 73; RESP 14; O2SAT 100
--- NOTE | 2017-09-03 01:13 | PD ---
HPI Chief Complaint: Abdominal Pain Time Seen by Provider: 23:58 Travel History International Travel<30 days: No Contact w/Intl Traveler<30days: No Traveled to known affect area: No History of Present Illness HPI pt is having abdo pain and thinks it is related to a tubiligation procedure she had done 2 months ago. The pain is localized to her periumbilical area it does not radiate it feels like a sharp pain in her abdomen. She has not seen another doctor for this. She actually never went to the follow-up postoperative typification checkup either. She is not vomiting she is not having diarrhea she reports that once she had a bowel obstruction that resolved with conservative management without surgery. In the ER she is nontoxic appearing awake alert no signs of sepsis she is not vomiting PFSH Past Medical History Medical History: Denies Significant Hx Gastrointestinal Disorders: Yes ?: Not Menopausal: No : 2 Para: 0 Miscarriage: 1 Tubal Ligation: Yes Past Surgical History Surgical History: No Previous Surgery Social History Alcohol Use: No Tobacco Use: Yes (1/2 PACK A DAY ) Substance Use: No Allergies-Medications (Allergen,Severity, Reaction): Coded Allergies: latex (Unverified Allergy, Severe, 06/09/17) Reported Meds & Prescriptions Reported Meds & Active Scripts Active Reported Citalopram (Citalopram Hydrobromide) 20 Mg Tab 20 Mg PO DAILY Hydroxyzine HCl 25 Mg Tab 25 Mg PO DIRECTED Citranatal Dha Pack ( W/O Vit A W/ Fe Carbo Pack) 27-1 & 250 Mg Pack 1 Ea PO DAILY 30 day supply. Review of Systems Except as stated in HPI: all other systems reviewed are Neg Gastrointestinal: Positive: Abdominal Pain Physical Exam Narrative GENERAL: [-] Awake alert nontoxic appearing no fever SKIN: Focused skin assessment warm/dry. HEAD: Atraumatic. Normocephalic. EYES: Pupils equal and round. No scleral icterus. No injection or drainage. ENT: No nasal bleeding or discharge. Mucous membranes pink and moist. NECK: Trachea midline. No JVD. CARDIOVASCULAR: Regular rate and rhythm. No murmur appreciated. RESPIRATORY: No accessory muscle use. Clear to auscultation. Breath sounds equal bilaterally. GASTROINTESTINAL: Abdomen soft, positive mild tenderness periumbilical more right than left. , nondistended. Hepatic and splenic margins not palpable. MUSCULOSKELETAL: No obvious deformities. No clubbing. No cyanosis. No edema. NEUROLOGICAL: Awake and alert. No obvious cranial nerve deficits. Motor grossly within normal limits. Normal speech. PSYCHIATRIC: Appropriate mood and affect; insight and judgment normal. Data Data Last Documented VS Vital Signs Date Time Temp Pulse Resp B/P (MAP) Pulse Ox O2 Delivery O2 Flow Rate FiO2 09/02/17 22:14 98.3 76 16 103/63 (76) 100 Room Air Orders Orders Urinalysis - C+S If Indicated (09/03/17 00:30) Al-Mag Hy-Si 40-40-4 Mg/Ml Liq (Mag-Al P (09/03/17 00:45) Lidocaine 2% Viscous (Xylocaine 2% Visco (09/03/17 00:45) Labs Laboratory Tests Test 09/03/17 00:53 Urine Color YELLOW Urine Turbidity HAZY Urine pH 7.0 Urine Specific [place] 1.027 Urine Protein 30 mg/dL Urine Glucose (UA) NEG mg/dL Urine Ketones NEG mg/dL Urine Occult Blood NEG Urine Nitrite NEG Urine Bilirubin NEG Urine Urobilinogen LESS THAN 2.0 MG/DL Urine Leukocyte Esterase NEG Urine RBC LESS THAN 1 /hpf Urine WBC 3 /hpf Urine Squamous Epithelial Cells 8 /hpf Urine Bacteria RARE /hpf Urine Mucus MANY /lpf Microscopic Urinalysis Comment CULT NOT INDICATED MDM Medical Decision Making Medical Screen Exam Complete: Yes Emergency Medical Condition: Yes Differential Diagnosis Gastritis versus GERD versus pancreatitis versus gallbladder disease versus competitions of tube ligation Narrative Course GI cocktail viscous lidocaine and Maalox alleviates her symptoms completely and she is ready for discharge Diagnosis Primary Impression: Gastritis Qualified Codes: K29.70 - Gastritis, unspecified, without bleeding Patient Instructions: Gastritis (ED), General Instructions Scripts Alum-Mag Hydrox-Simethicone Liq (Antacid Advanced Liq) 400-400-40 Mg/5 Ml Susp 20 ML PO Q6HR, #200 ML Prov: Jim Go MD 09/03/17 Disposition: 01 DISCHARGE HOME Condition: Good Jim Go MD Sep 03, 2017 01:13
[2017-09-03 01:27] LABS: BACTERIA, URINE RARE /hpf; BLOOD, URINE NEG (NEG); COMMENT (UR) CULT NOT INDICATED; CULTURE IF INDICATED CULT NOT INDICATED; GLUCOSE,URINE NEG (NEG); KETONE, URINE NEG (NEG); MUCUS URINE MANY /lpf (OCC); NITRITE,URINE NEG (NEG); SQUAMOUS EPITHELIAL CELL URINE 8 /hpf (0-5); URINE COLOR YELLOW (YELLW/STRAW)
[2017-09-03] MEDS ORDERED: ALUM1SUS11 PO (01:56)
== END 2017-09-03 02:18 | disposition home or self-care (01) ==
LOC: NEPC 22:12
DX: K29.70 Gastritis, unspecified, without bleeding (principal); F17.200 Nicotine dependence, unspecified, uncomplicated; Z98.890 Other specified postprocedural states
CPT/HCPCS: 81001; 99284